=== PATIENT | female | born 1945 | race Caucasian/White ===

== ENCOUNTER 2019-11-22 13:16 | Outpatient (CLI) | payer MEDICARE ==
--- NOTE | 2019-11-22 15:29 | BD ---
DEXA BONE DENSITY STUDY: Date: 11/22/2019 HISTORY: Postmenopausal. FINDINGS: Lumbar Spine: BMD (g/cm2) L1 0.895 T-Score: -0.9 L2 0.976 T-Score: -0.5 L3 1.154 T-Score: +0.6 L4 1.051 T-Score: -0.1 Total 1.025 T-Score: -0.2 Left Femoral Neck: 0.774 T-Score: -0.7 Total Femur: 0.981 T-Score: +0.3 IMPRESSION: Normal bone mineral density of the lumbar spine and left femoral neck. POS: GIO
== END 2019-11-22 13:17 | disposition home or self-care (01) ==
LOC: BICMAMMO 13:16
PROVIDERS: ATTEND Internal Medicine Rheumatology
DX: M85.80 Other specified disorders of bone density and structure, unspecified site (principal)
CPT/HCPCS: 77080